=== PATIENT | male | born 1990 | race Caucasian/White ===

== ENCOUNTER 2022-05-20 05:44 | Emergency (ER) | payer SELFPAY ==
[2022-05-20] MEDS ORDERED: ONDANSETRON 4 MG/2 ML VIAL ONE (08:36)
[2022-05-20] MEDS ORDERED: NA CHLORIDE 0.9% 1,000 ML ONE (08:36)
[2022-05-20 08:53] LABS: Hematocrit 43.8 % (39.6-49.0); Lymphocytes % 10.2 % (15.3-44.8); MCV 87.5 fL (80-100); MPV 8.5 fL (7.6-11.3); RBC Red Blood Cell Count 5.01 M/uL (4.33-5.43)
[2022-05-20 09:30] LABS: Albumin 4.1 g/dL (3.4-5.0); Bilirubin Total 0.8 mg/dL (0.2-1.0); Potassium 3.9 mmol/L (3.5-5.1); Protein, Total 7.8 g/dL (6.4-8.2)
--- NOTE | 2022-05-20 10:35 | RAD REPORT ---
EXAM DESCRIPTION: RAD - Abdomen 1 View (KUB) - 05/20/2022 9:22 am CLINICAL HISTORY: Abdomen pain/constipation FINDINGS: The bowel gas pattern is unremarkable. A large amount of stool is present within the colon. Small round calcification in the right pelvis probably a phlebolith
[2022-05-20] MEDS ORDERED: VALACYCLOVIR 500 MG TAB PO ONE (12:15)
[2022-05-20] MEDS ORDERED: VALACYCLOVIR 500 MG TAB ONE (12:15)
--- NOTE | 2022-05-20 13:52 | ER ---
Nurse's Notes [facility] Name: Naren Osorio Age: 31 yrs Sex: Male : 1990 Arrival Date: 05/20/2022 Time: 05:47 Bed 24 Private MD: Diagnosis: Perianal Herpes Simplex Virus Infection;Constipation Presentation: 05/20 06:08 Chief complaint: Patient states: "Last Sunday and i saw my primary about a rash i was tw5 having. I have not had a bowel movement since Sunday. Today I started throwing up and I cannot keep anything down.". Coronavirus screen: Vaccine status: Patient reports receiving the 1st dose of the Covid vaccine. J and J. Ebola Screen: Patient negative for fever greater than or equal to 101.5 degrees Fahrenheit, and additional compatible Ebola Virus Disease symptoms Patient denies exposure to infectious person. Patient denies travel to an Ebola-affected area in the 21 days before illness onset. Initial Sepsis Screen: Does the patient meet any 2 criteria? No. Patient's initial sepsis screen is negative. Does the patient have a suspected source of infection? No. Patient's initial sepsis screen is negative. Risk Assessment: Do you want to hurt yourself or someone else? Patient reports no desire to harm self or others. Onset of symptoms is unknown. 06:08 Method Of Arrival: Ambulatory tw5 06:08 Acuity: PABLO 3 tw5 Triage Assessment: 06:10 General: Appears uncomfortable, Behavior is calm, cooperative, appropriate for age. tw5 Pain: Pain currently is 5 out of 10 on a pain scale. GI: Reports constipation, nausea, vomiting. Historical: - Allergies: 06:10 PENICILLINS; tw5 06:10 cefaclor; tw5 - Home Meds: 06:10 Lexapro 10 mg Oral tab 1 tab once daily [Active]; tw5 - PSHx: 06:10 None; tw5 - Immunization history:: Flu vaccine is not up to date. - Social history:: Smoking status: Reported history of juuling and/or vaping. Screenin:12 Abuse screen: Denies threats or abuse. Denies injuries from another. Nutritional tw5 screening: No deficits noted. Tuberculosis screening: No symptoms or risk factors identified. Fall Risk None identified. Assessment: 08:57 General: Appears in no apparent distress. Behavior is calm, cooperative. Pain: louise Complains of pain in rectal and generalized pain. GI: Abdomen is non-distended, Rectal exam: lesion noted, redness rash. Vital Signs: 06:08 BP 110 / 71; Pulse 81; Resp 18; Temp 98.3; Pulse Ox 97% ; Weight 63.5 kg; Height 5 ft. tw5 8 in. (172.72 cm); Pain 5/10; 07:26 BP 117 / 71; Pulse 65; Resp 18; Pulse Ox 99% on R/A; louise 08:56 BP 111 / 78; Pulse 78; Resp 17; Pulse Ox 97% on R/A; louise 12:10 BP 108 / 71; Pulse 59; Resp 16; Pulse Ox 97% on R/A; louise 06:08 Body Mass Index 21.29 (63.50 kg, 172.72 cm) tw5 ED Course: 05:47 Patient arrived in ED. ja2 06:10 Triage completed. tw5 06:10 Arm band placed on right wrist. tw5 06:13 Patient has correct armband on for positive identification. tw5 07:04 Lucrecia Tan, RN is Primary Nurse. louise 07:05 Erin Hall MD is Attending Physician. sd2 08:57 Assist provider with eye exam Served as a threshing operator during rectal exam. Inserted saline louise lock: 20 gauge in right antecubital area, using aseptic technique. 09:24 XRAY Abdomen 1 View (KUB) In Process Unspecified. EDMS 09:44 [facility] [phone]/ the answering service will page out eb the synchronous motor assembler and someone will call us back shortly. 10:37 Assisted to bathroom. mb7 11:30 Health Dept Health department called again / the answering service will page out the on eb call again since we have yet to hear anything back. 12:00 Health Dept Health Department called again/ the answering service will page out the on eb call again. 12:46 [address] connected with Dr. Hall for patient consultation. eb 14:59 IV discontinued, intact, Pressure dressing applied. louise Administered Medications: 08:35 Drug: Zofran (Ondansetron) 4 mg Route: IVP; Site: right antecubital; louise 08:35 Drug: NS 0.9% 1000 ml Route: IV; Rate: 125 ml/hr; Site: right antecubital; louise 12:09 Drug: valACYclovir 1000 mg Route: PO; louise 12:09 Follow up: Response: No adverse reaction louise Medication: 08:57 VIS not applicable for this client. louise Outcome: 13:51 Discharge ordered by . [email or web address] 14:59 Discharged to home ambulatory. louise 14:59 Condition: good 14:59 Discharge instructions given to patient, Prescriptions given X 3. 14:59 Patient left the ED. louise Signatures: Dispatcher [employer] EDMS Nneka Morejon Jessica ja2 Wood, Tiffany tw5 Lisseth Schmidt7 Lucrecia Tan RN RN ha Dunlop, Stephanie, MD MD sd2
--- NOTE | 2022-05-20 13:52 | EDPHYS ---
Physician Documentation [facility] Name: Naren Osorio Age: 31 yrs Sex: Male : 1990 Arrival Date: 05/20/2022 Time: 05:47 Bed 24 Private MD: ED Physician Erin Hall HPI: 05/20 07:46 This 31 yrs old Male presents to ER via Ambulatory with complaints of Vomiting, Rash, sd2 Fever, Pain All Over. 07:46 31 yo M presents with chief complaint of perianal rash that started on Sunday with sd2 associated pain and discharge from the area. States he was seen by his PCP on Sunday who did not see a rash at that time. Returned on Sunday and they performed a culture of the area but he has not received the results yet. Reports a history of anal sex. Also states fever up to 101F at home with associated vomiting starting today. Reports no bowel movement since Sunday. . Historical: - Allergies: 06:10 PENICILLINS; tw5 06:10 cefaclor; tw5 - Home Meds: 06:10 Lexapro 10 mg Oral tab 1 tab once daily [Active]; tw5 - PSHx: 06:10 None; tw5 - Immunization history:: Flu vaccine is not up to date. - Social history:: Smoking status: Reported history of juuling and/or vaping. ROS: 07:46 Constitutional: Negative for fever, chills, and weight loss, Eyes: Negative for injury, sd2 pain, redness, and discharge, Cardiovascular: Negative for chest pain, palpitations, and edema, Respiratory: Negative for shortness of breath, cough, wheezing. Abdomen/GI: Positive for nausea and vomiting and constipation. Negative for abdominal pain and diarrhea. MS/Extremity: Negative for injury and deformity, Skin: Positive for rash. Negatrive for injury or discoloration. Neuro: Negative for headache, numbness and tingling. Exam: 07:46 Constitutional: This is a well developed, well nourished patient who is awake, alert, sd2 and in no acute distress. Head/Face: Normocephalic, atraumatic. Eyes: EOMI, normal conjunctiva bilaterally Chest/axilla: Normal chest wall appearance and motion. Nontender with no deformity. Cardiovascular: Regular rate and rhythm with a normal S1 and S2. No gallops, murmurs, or rubs. 2+ distal pulses. Respiratory: Lungs have equal breath sounds bilaterally, clear to auscultation and percussion. No rales, rhonchi or wheezes noted. No increased work of breathing, no retractions or nasal flaring. Abdomen/GI: Soft, non-tender, with normal bowel sounds. No guarding or rebound. No evidence of tenderness throughout. Skin: Vesicular rash noted to perianal area with some areas of overlying lund crusting and discharge. No surrounding cellulitis noted. MS/ Extremity: Pulses equal, no cyanosis. Neurovascular intact. Full, normal range of motion. Ambulatory without difficulty. Psych: Awake, alert, with orientation to person, place and time. Behavior, mood, and affect are within normal limits. Vital Signs: 06:08 BP 110 / 71; Pulse 81; Resp 18; Temp 98.3; Pulse Ox 97% ; Weight 63.5 kg; Height 5 ft. tw5 8 in. (172.72 cm); Pain 5/10; 07:26 BP 117 / 71; Pulse 65; Resp 18; Pulse Ox 99% on R/A; louise 08:56 BP 111 / 78; Pulse 78; Resp 17; Pulse Ox 97% on R/A; louise 12:10 BP 108 / 71; Pulse 59; Resp 16; Pulse Ox 97% on R/A; louise 06:08 Body Mass Index 21.29 (63.50 kg, 172.72 cm) tw5 MDM: 07:26 Patient medically screened. sd2 07:46 Differential diagnosis: gastritis, cholecystitis, pancreatitis, appendicitis, sd2 diverticulitis, viral gastroenteritis, constipation, HSV, monkeypox, STI among others. Data reviewed: vital signs, nurses notes. 12:16 Counseling: I had a detailed discussion with the patient and/or guardian regarding: the sd2 historical points, exam findings, and any diagnostic results supporting the discharge/admit diagnosis, lab results. ED course: Discussed results with patient. We are pending callback from the Health Department due to recent concerns for monkeypox. This patient has several high risk factors with a rash that could possibly be consistent although appears more like HSV. We will need approval from the contact officer at the Health Department to test the patient. Patient is agreeable to this and verbalizes understanding. We have called the Health Department 3 times at this time and are still awaiting callback.. 12:58 ED course: I spoke with Michael contact officer from the Health Department and gave sd2 report. She states this would fall under [facility] and they will have to transfer the case over to them. She will call them after we get off the phone and they will call us back.. 15:14 Medical screen evaluation completed. EMTALA emergency medical condition absent. ED sd2 course: Discussed case with [facility], Aldo, and contact officer. Aldo spoke with patient on phone regarding next steps and swabs were sent according to their recommendations for further testing. pt to isolate at home pending results and Health Department will follow up with the patient. Advised bowel regimen for constipation and will give prn nausea medications. Pt comfortable with plan for discharge and outpatient follow up. Will Rx Valacyclovir.. 05/20 07:26 Order name: CBC with Diff; Complete Time: 10:29 05/20 07:26 Order name: CMP; Complete Time: 10:29 05/20 07:26 Order name: Lipase; Complete Time: 10:29 05/20 07:26 Order name: XRAY Abdomen 1 View (KUB); Complete Time: 10:36 sd05/20 07:36 Order name: IV Saline Lock; Complete Time: 08:35 mb7 05/20 14:45 Order name: HSV Culture and Typing EDMS Administered Medications: 08:35 Drug: Zofran (Ondansetron) 4 mg Route: IVP; Site: right antecubital; louise 08:35 Drug: NS 0.9% 1000 ml Route: IV; Rate: 125 ml/hr; Site: right antecubital; louise 12:09 Drug: valACYclovir 1000 mg Route: PO; louise 12:09 Follow up: Response: No adverse reaction louise Disposition Summary: 05/20/22 13:51 Discharge Ordered Location: Home sd2 Problem: new sd2 Symptoms: have improved sd2 Condition: Stable sd2 Diagnosis - Perianal Herpes Simplex Virus Infection sd2 - Constipation sd2 Followup: sd2 - With: Private Physician - When: 1 - 2 days - Reason: Recheck today's complaints, Continuance of care, Re-evaluation by your physician Followup: sd2 - With: Emergency Department - When: As needed - Reason: Discharge Instructions: - Discharge Summary Sheet sd2 - Genital Herpes sd2 Forms: - Medication Reconciliation Form sd2 - Thank You Letter sd2 - Prescription Opioid Use sd2 Prescriptions: - Valtrex 500 mg Oral Tablet - take 1000 milligram by ORAL route every 12 hours for 10 days; 40 tablet; sd2 Refills: 0, Product Selection Permitted - polyethylene glycol (bulk) - take 17 gram by ORAL route 2 times per day; 476 gram; Refills: 0, Product jh7 Selection Permitted - ondansetron 8 mg Oral tablet,disintegrating - take 1 tablet by ORAL route every 8 hours Take as needed for nausea and sd2 vomiting; 15 tablet; Refills: 0, Product Selection Permitted Signatures: Dispatcher [employer] Andie Leonardo tw5 Lisseth Schmidt mb7 Lucrecia Tan RN RN ha Dunlop, Stephanie, MD MD sd2 Corrections: (The following items were deleted from the chart) 12:19 12:16 ED course: Discussed results with patient. We are pending callback from the [facility] due to recent concerns for monkeypox. This patient has several high risk factors with a rash that could possibly be consistent although appears more like HSV. We will need approval from the contact officer at the Health Department to test the patient. Patient is agreeable to this and verbalizes understanding.. sd2 14:57 07:42 HSV Culture and Typing ordered. [facility]
[2022-05-20 15:41] VITALS: TEMP 98.3
[2022-05-20 15:51] VITALS: O2SAT 97
[2022-05-20 15:59] VITALS: BP 108/71
== END 2022-05-20 14:59 | disposition home or self-care (01) ==
LOC: ER 05:44
DX: A60.1 Herpesviral infection of perianal skin and rectum (principal); K59.00 Constipation, unspecified; Z88.0 Allergy status to penicillin; Z88.1 Allergy status to other antibiotic agents
CPT/HCPCS: 36415; 74018; 80053; 83690; 85025; 87255; 96374; 99284; J2405; J7030